=== PATIENT | male | born 1940 | race Caucasian/White ===

== ENCOUNTER → 2020-12-17 | Outpatient (CLI) | payer OTHER ==
[~2020-12-17] MED LIST: ZOFRAN ODT 4 MG4 MG SL; ZOFRAN4 MG PO; ZYRTEC10 M3 PO
[2020-12-17 11:49] LABS: HEMOGLOBIN 14.6 gm/dl (14.0-17.5); RED BLOOD COUNT 4.89 M/UL (4.20-5.50); WHITE BLOOD COUNT 6.5 K/UL (4.5-11.0)
== END ==
LOC: LAB 09:05
PROVIDERS: Physician Assistant Medical
DX: E53.8 Deficiency of other specified B group vitamins (principal); E11.9 Type 2 diabetes mellitus without complications; E03.9 Hypothyroidism, unspecified; E78.5 Hyperlipidemia, unspecified; R53.83 Other fatigue
CPT/HCPCS: 36415; 80053; 80061; 82607; 83036; 84443; 85025

== ENCOUNTER → 2020-12-18 | Outpatient (CLI) | payer OTHER | LOC: RAD 09:56 | DX: R07.9 Chest pain, unspecified (principal) | CPT/HCPCS: 71046 ==

== ENCOUNTER → 2021-02-26 | Outpatient (CLI) | payer OTHER | LOC: LAB 09:48 | PROVIDERS: Internal Medicine Nephrology | DX: N18.2 Chronic kidney disease, stage 2 (mild) (principal); E55.9 Vitamin D deficiency, unspecified | CPT/HCPCS: 36415; 80053; 82570; 84156 ==

== ENCOUNTER → 2021-03-18 | Outpatient (CLI) | payer OTHER ==
[2021-03-18 11:19] LABS: HEMOGLOBIN 11.5 gm/dl (14.0-17.5); RED BLOOD COUNT 4.22 M/UL (4.20-5.50); WHITE BLOOD COUNT 10.6 K/UL (4.5-11.0)
[2021-03-18 11:47] LABS: BUN/CREATININE RATIO 11 (0-10)
== END ==
LOC: OPSV 10:01
PROVIDERS: Physician Assistant Medical
DX: R53.83 Other fatigue (principal); E11.9 Type 2 diabetes mellitus without complications; E55.9 Vitamin D deficiency, unspecified
CPT/HCPCS: 36415; 80053; 80061; 82607; 83036; 84443; 85025

== ENCOUNTER → 2021-04-29 | Outpatient (CLI) | payer OTHER ==
[2021-04-29 11:01] LABS: BUN/CREATININE RATIO 8 (0-10)
== END ==
LOC: LAB 09:46
PROVIDERS: Internal Medicine Nephrology
DX: N18.2 Chronic kidney disease, stage 2 (mild) (principal); R31.9 Hematuria, unspecified; E55.9 Vitamin D deficiency, unspecified
CPT/HCPCS: 36415; 80053; 82570; 83970; 84100; 84153; 84156

== ENCOUNTER → 2021-07-03 | Outpatient (CLI) | payer OTHER | LOC: HEART 5 08:00 | DX: I73.9 Peripheral vascular disease, unspecified (principal) ==

== ENCOUNTER → 2021-08-26 | Outpatient (CLI) | payer OTHER ==
[2021-08-26 12:11] LABS: BUN/CREATININE RATIO 11 (0-10)
== END ==
LOC: LAB 10:50
PROVIDERS: Internal Medicine Nephrology
DX: N18.2 Chronic kidney disease, stage 2 (mild) (principal); E55.9 Vitamin D deficiency, unspecified
CPT/HCPCS: 36415; 80053; 82570; 83970; 84100; 84156

== ENCOUNTER → 2021-09-17 | Outpatient (CLI) | payer OTHER ==
[2021-09-17 12:36] LABS: HEMOGLOBIN 14.7 gm/dl (14.0-17.5); RED BLOOD COUNT 5.16 M/UL (4.20-5.50); WHITE BLOOD COUNT 6.5 K/UL (4.5-11.0)
[2021-09-18 07:11] LABS: ESTIM. AVG GLU (EAG) 255 mg/dL (.); HEMOGLOBIN A1C 10.5 % (4.8-5.6)
[2021-09-18 10:11] LABS: ALKALINE PHOSPHATASE, S 78 IU/L (44-121); ALT (SGPT) 19 IU/L (0-44); AST (SGOT) 19 IU/L (0-40); BILIRUBIN, TOTAL 0.2 mg/dL (0.0-1.2); BUN 10 mg/dL (8-27); BUN/CREATININE RATIO 9 (10-24); CALCIUM, SERUM 9.3 mg/dL (8.6-10.2); CARBON DIOXIDE, TOTAL 21 mmol/L (20-29); CHLORIDE, SERUM 101 mmol/L (96-106); CHOLESTEROL, TOTAL 146 mg/dL (100-199); CREATININE, SERUM 1.12 mg/dL (0.76-1.27); EGFR IF AFRICN AM 71 (>59); EGFR IF NONAFRICN AM 62 (>59); GLOBULIN, TOTAL 2.3 g/dL (1.5-4.5); GLUCOSE, SERUM 209 mg/dL (65-99); HDL CHOLESTEROL 34 mg/dL (>39); LDL CHOLESTEROL CALC 86 mg/dL (0-99); LDL/HDL RATIO 2.5 ratio (0.0-3.6); PROTEIN, TOTAL, SERUM 6.8 g/dL (6.0-8.5); SODIUM, SERUM 138 mmol/L (134-144); T. CHOL/HDL RATIO 4.3 ratio (0.0-5.0); TRIGLYCERIDES 150 mg/dL (0-149)
[2021-09-19 00:07] LABS: VITAMIN D, 25-HYDROXY 27.7 ng/mL (30.0-100.0)
== END ==
LOC: LAB 11:52
PROVIDERS: Physician Assistant Medical
DX: E55.9 Vitamin D deficiency, unspecified (principal); E11.9 Type 2 diabetes mellitus without complications; E03.9 Hypothyroidism, unspecified; E78.5 Hyperlipidemia, unspecified; R53.83 Other fatigue
CPT/HCPCS: 36415; 80053; 80061; 83036; 84443; 85025

== ENCOUNTER → 2022-02-12 | Outpatient (CLI) | payer OTHER | LOC: KOH-I 13:00 | DX: I65.23 Occlusion and stenosis of bilateral carotid arteries (principal) | CPT/HCPCS: 93880 ==

== ENCOUNTER → 2022-04-14 | Outpatient (CLI) | payer OTHER ==
[2022-04-14 12:43] LABS: HEMOGLOBIN 14.5 gm/dl (14.0-17.5); RED BLOOD COUNT 4.79 M/UL (4.20-5.50); WHITE BLOOD COUNT 6.6 K/UL (4.5-11.0)
[2022-04-14 13:16] LABS: BUN/CREATININE RATIO 13 (0-10)
== END ==
LOC: LAB 11:34
PROVIDERS: Physician Assistant Medical
DX: E11.9 Type 2 diabetes mellitus without complications (principal); E03.9 Hypothyroidism, unspecified; E78.5 Hyperlipidemia, unspecified; E55.9 Vitamin D deficiency, unspecified; R53.83 Other fatigue
CPT/HCPCS: 36415; 80053; 80061; 83036; 84443; 85025